=== PATIENT | male | born 2000 | race Two or more races ===

== ENCOUNTER 2022-09-26 13:08 | Emergency (ER) | payer BC | END 2022-09-26 16:00 | disposition left against medical advice (07) | LOC: MW.ED 13:08 | DX: Z53.21 Procedure and treatment not carried out due to patient leaving prior to being seen by health care provider (principal) ==

== ENCOUNTER 2022-09-26 17:59 | Emergency (ER) | payer BC | END 2022-09-26 19:21 | disposition home or self-care (01) | LOC: MW.ED 17:59 | DX: R51.9 Headache, unspecified (principal) | CPT/HCPCS: 99283 ==

== ENCOUNTER 2023-05-21 15:55 | Emergency (ER) | payer BC | END 2023-05-21 18:04 | disposition home or self-care (01) | LOC: MW.ED 15:55 | DX: R51.9 Headache, unspecified (principal); Z87.891 Personal history of nicotine dependence | CPT/HCPCS: 70450; 70450-26; 99283; 99284 ==

== ENCOUNTER 2023-07-18 19:30 | Emergency (ER) | payer SELFPAY ==
[2023-07-18 23:25] LABS: BILIRUBIN,URINE NEGATIVE (NEGATIVE); COLOR,URINE YELLOW; GLUCOSE,URINE NEGATIVE (NEGATIVE); KETONES,URINE NEGATIVE (NEGATIVE); LEUKOCYTE ESTERASE,URINE NEGATIVE (NEGATIVE); NITRITE,URINE NEGATIVE (NEGATIVE); OCCULT BLOOD,URINE SMALL (NEGATIVE); PROTEIN,URINE NEGATIVE (NEGATIVE); UROBILINOGEN,URINE 0.2 EU/dL (<2.0)
[2023-07-18 23:38] LABS: APPEARANCE,URINE HAZY
[2023-07-18 23:39] LABS: BACTERIA,URINE FEW (NEGATIVE); EPITHELIAL CELLS,URINE RARE (NONE-FEW); WBC,URINE 0-1 (0-5/HPF)
[2023-07-19 01:02] LABS: C. TRACHOMATIS BY PCR NOT DETECTED; N. GONORRHOEAE BY PCR NOT DETECTED
== END 2023-07-19 00:16 | disposition home or self-care (01) ==
LOC: MW.ED 19:30
DX: N50.811 Right testicular pain (principal); N50.812 Left testicular pain
CPT/HCPCS: 76870; 76870-26; 81001; 87491; 87591; 93976; 93976-26; 99283; 99284

== ENCOUNTER 2023-09-04 14:20 | Emergency (ER) | payer BC, MEDICAID ==
[2023-09-04] MEDS ORDERED: Lidocaine 1% PF 2 ML SDV INJECT ONE (14:46)
== END 2023-09-04 15:24 | disposition home or self-care (01) ==
LOC: MW.ED 14:20
DX: L02.415 Cutaneous abscess of right lower limb (principal)
CPT/HCPCS: 10060; 99282; 99283; J3490